=== PATIENT | female | born 1965 | race Caucasian/White ===

== ENCOUNTER → 2016-10-03 | Outpatient (CLI) | payer OTHER | LOC: FIMAGING 13:59 | PROVIDERS: ATTEND Registered Nurse General Practice | DX: Z12.31 Encounter for screening mammogram for malignant neoplasm of breast (principal) | CPT/HCPCS: G0202 ==

== ENCOUNTER 2016-11-21 08:56 | Day surgery (SDC) | payer OTHER ==
--- NOTE | 2016-11-17 08:27 | PDGENHP ---
History and Physical - Chief Complaint Left leg pain - History of Present Illness 1. 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 She~lives in [place]. 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. ~She~is ; she~has 4~children. ~Debraenjoys running, cycling , swimming and pilates. Brett's left~hip pain started in ~with no~recalled trauma or injury, and with no~previous complaints.~Debradoes not have~a known history of hip dysplasia. Presentation today is of~left hip hamstring origin and some lateral sided~pain. ~The hip does~wake her~at night and does not~click and catch on her. Sitting can be a real struggle~for her. Debradoes~report suffering from lower back pain episodes. Debrahas~participated in physical therapy and has~tried other conservative measures including dry needling and massage therapy. She has had left hamstring USG guided steroid injection in August,~and she felt significantly better for few hours. ~She~has not~received sufficient symptomatic improvement. Debrahas~utilized medication for pain management, including NSAID. Debrahas used medication for 5 months. Debradenies issues with the right~hip. ~ Debraunderstands that she~has a hip and pelvis problem which should be researched and wishes to get a better understanding of her~hip status, followed by an establishment of a treatment strategy, hoping she~would be able to get back to her~well being active life. History: Past medical history: ~ High Cholestrol Relevant familial history: None which is relevant Past surgical history: No. Surgery Anesthesia Year Outcome 1 C section EA 1999 2 Abdominoplasty and breast augumentation [place] 2009 Good Debradenies problematic issues with general anesthesia in the past. I have reviewed, verified and agree with the past medical, surgical, family and social history. Current Medications:~has a current medication list which includes the following prescription(s): meloxicam, rosuvastatin, sertraline hcl, and tramadol. ALLERGIES:~has No Known Allergies. Objective: Physical Examination: Debrais 5~feet 5~inches tall and weighs~135~Lbs. Debrais AAO x3; she~is well -nourished, in NAD. Skin is warm and dry. ~Breathing is non-labored. ~CV with RRR by pulse. Abdomen is soft, NTND. Currently, she~walks with a abnormal antalgic~gait. Trendelenburg sign is negative~and proprioception~is reduced, both~sides. She~presents~with no~signs of joint laxity.~Beightons Score: 0 ~ Lower spine examination is negative~for sciatic or femoral nerve irritation with negative~SLR &~femoral stretch tests. Range of motion of the spine is normal~for flexion, extension, and rotations, with no~associated pain. Strength, Sensation and pulses are normal - bilaterally Ankles and knees exams are normal~and no~mal-alignment is evident. She~has~no leg length discrepancy. Thigh circumference is symmetric~with no evidence for muscle atrophy~on both~ sides. Hip ROM (degrees): FL ER At 90~hip FL IR At 90~hip FL AB AD EX IR Neutral hip ER Neutral hip R 115 40 5-10 35 5 10 25-30 30 L 115 40 15 35 5 5 25-30 30 Specific hip and pelvis tests: Quadrant JONA Roll Add. Longus R Negative Negative Negative Negative L Negative Negative Negative Negative Glut. Med ITB Pos. Imp R Negative 5/5 strength Negative 5/5 strength Negative L Negative 5/5 strength Negative 5/5 strength Negative Squeeze test measured normal Bony Symphysis pubis is pain free~to touch while concentric activity of the rectus abdominis, does not~produce pain at its insertion. Ilio Psos specific tests are negative for pain during cycling for both hips~and remarkable for no snap. HF has no pain on both hips. No anterior~capsule tenderness on both sides. Greater trochanteric burse is pain free~on both hips. Piriformis tests: FAIR is negative, with no~local signs of neuritis related to sciatic nerve. SIJs examination is normal~with normal~JONA in relation and local tenderness. Hamstrings tests are positive~functional contraction and positive~tendinopathy the left hip. Imaging: Radiology studies which I~have personally reviewed, analyzed and measured are below: XR: AP of the hip and pelvis: Performed in a good~technique Coccyx to pubic symphysis distance 1.3~cm. 3~degrees caudal. [place]~Lines are preserved. No~Pathological signs are seen in the Symphysis Pubis. No~Pathological signs are seen at the Ischial~tuberosity. ~ Specific measurements show: Sclerosis Sup. Lat. OA Cysts Joint Space-WBZ Joint Space-Medial R + Negative Negative 4.2~mm 2.8~mm L + Negative Negative 4.1~mm 2.7~mm X Table lateral: Anterior cam lesion is not seen~on both hips. MRI shows: Partial tear of left proximal hamstring tendons off the footprint (60 -70%) with 2 cm retraction. Impression and plan:~ Debrais a 51 y.o.~active female~suffering from symptomatic left hamstring~ pain due to chronic proximal hamstrings partial tear with 2 cm retractioncausing significant disability to her~and altering~her~sport and life activities. Physical examination, imaging, and her~story correspond with the diagnosis mentioned above. I have explained the diagnosis and its significance to Debraand we have discussed the various possible treatment options and their implications with her. These include proceeding with conservative treatment while continuing to modify her~activities to avoid aggravating the hamstrings further and resuming pain medications or PRP injections (when needed) which can give temporary relief or surgical repair. We discussed in length the various aspects of the surgical procedure including possible complications, and with regards to the fact the sciatic nerve may be scarred up to the tendons and will require delicate neurolysis. Debrawill review the info presented. Debrais going to think about her~options and get back to us. Debrais happy with this plan. I have also supplied her~with our contact and web site details. I wish~Debraall the best, ~~ Arabella Riojas MD History Information - Allergies/Home Medication List Allergies/Adverse Reactions: No Known Allergies Allergy (Unverified 11/08/09 05:32) Home Medications: Zoloft 11/08/09 [Last Taken 04/13/07] Apri 28 Day Tablet 11/03/16 [Last Taken Unknown] Crestor 11/03/16 [Last Taken Unknown] Herbals/Supplements -Info Only 11/03/16 [Last Taken Unknown] Ibuprofen 11/03/16 [Last Taken Unknown] Imitrex 11/03/16 [Last Taken Unknown] Meloxicam 11/03/16 [Last Taken Unknown] Tramadol HCl 11/03/16 [Last Taken Unknown] Valacyclovir HCl 11/03/16 [Last Taken Unknown] Zolpidem Tartrate 11/03/16 [Last Taken Unknown] I have personally reviewed and updated: medical history - Social History Smoking Status: Never smoked Review of Systems Review of Systems: Physical Exam Physical Exam:
[2016-11-21] MEDS ORDERED: LIDOCAINE 1% 2 ML INJ ID PRN (09:36)
[2016-11-21] MEDS ORDERED: LR 1,000 ML IV ONE (09:36)
[2016-11-21] MEDS ORDERED: PREGABALIN 150 MG CAP PO ONE (09:44)
[2016-11-21] MEDS ORDERED: ceFAZolin 2 GM/DEXTROSE 100 ML IV ONE (09:44)
[2016-11-21] MEDS ORDERED: ACETAMINOPHEN 500 MG TAB PO ONE (09:44)
[2016-11-21] MEDS ORDERED: BUPIVACAINE 0.25% 30 ML SDV ONE (10:26)
[2016-11-21] MEDS ORDERED: fentaNYL 100 MCG/2 ML INJ ONE ×2 (12:02→16:37)
[2016-11-21] MEDS ORDERED: PROPOFOL 200 MG/20 ML VIAL ONE (12:03)
[2016-11-21] MEDS ORDERED: ONDANSETRON 4 MG/2 ML VIAL ONE (12:08)
[2016-11-21] MEDS ORDERED: DEXAMETHASONE 4 MG/ML VIAL ONE ×2 (12:08→13:46)
[2016-11-21] MEDS ORDERED: MIDAZOLAM 2 MG/2 ML VIAL IVP ONE (12:21)
--- NOTE | 2016-11-21 12:21 | PDANEPAE ---
ANE History of Present Illness left hamstring tendon tear ANE Past Medical History - Cardiovascular History Hx Hypertension: No Hx Arrhythmias: No Hx Chest Pain: No Hx Coronary Artery / Peripheral Vascular Disease: No Hx CHF / Valvular Disease: No Hx Palpitations: No - Pulmonary History Hx COPD: No Hx Asthma/Reactive Airway Disease: Yes Hx Recent Upper Respiratory Infection: No Hx Oxygen in Use at Home: No Hx Sleep Apnea: No Sleep Apnea Screening Result - Last Documented: Negative Pulmonary History Comment: W /URIs - Neurologic History Hx Cerebrovascular Accident: No Hx Seizures: No Hx Dementia: No Neurologic History Comment: MIGRAINES - Endocrine History Hx Diabetes: No Obesity: no - Renal History Hx Renal Disorders: No - Liver History Hx Hepatic Disorders: No - Neurological & Psychiatric Hx Hx Neurological and Psychiatric Disorders: Yes Neurological / Psychiatric History Comment: ZOLOFT FOR DEPRESSION - Cancer History Hx Cancer: No - Congenital Disorder History Hx Congenital Disorders: No - GI History Hx Gastrointestinal Disorders: No - Other Health History Other Health History: HYPONATREMIA IN PAST. IRON DEF IN PAST. OSTEOARTHRITIS - Chronic Pain History Chronic Pain: Yes (OSTEOARTHRITIS NECK & LUMBAR STENOSIS) - Surgical History Prior Surgeries: C SECTION. ABDOMINOPLASTY & BREAST AUGMETATION ANE Review of Systems Review of Systems: - Exercise capacity METS (RN): 5 METS ANE Patient History - Allergies Allergies/Adverse Reactions: No Known Allergies Allergy (Unverified 11/08/09 05:32) - Home Medications Home medications: home medication list seen and reviewed Home Medications: Zoloft 11/08/09 [Last Taken 04/13/07] Apri 28 Day Tablet 11/03/16 [Last Taken Unknown] Crestor 11/03/16 [Last Taken Unknown] Herbals/Supplements -Info Only 11/03/16 [Last Taken Unknown] Ibuprofen 11/03/16 [Last Taken Unknown] Imitrex 11/03/16 [Last Taken Unknown] Meloxicam 11/03/16 [Last Taken Unknown] Tramadol HCl 11/03/16 [Last Taken Unknown] Valacyclovir HCl 11/03/16 [Last Taken Unknown] Zolpidem Tartrate 11/03/16 [Last Taken Unknown] - NPO status NPO Since - Liquids (Date): 11/20/16 NPO Since - Liquids (Time): 21:00 NPO Since - Solids (Date): 11/20/16 NPO Since - Solids (Time): 18:00 - Anes Hx Anes Hx: no prior problems - Smoking Hx Smoking Status: Never smoked - Family Anes Hx Family Hx Anesthesia Complications: NEG ANE Labs/Vital Signs - Vital Signs Blood Pressure: 121/89 Heart Rate: 68 Respiratory Rate: 16 O2 Sat (%): 96 Height: 165.1 cm Weight: 61.235 kg ANE Physical Exam - Airway Neck exam: FROM Mallampati Score: Class 1 Mouth exam: normal dental/mouth exam - Pulmonary Pulmonary: no respiratory distress - Cardiovascular Cardiovascular: regular rate and rhythym - ASA Status ASA Status: II ANE Anesthesia Plan Anesthesia Plan: general endotracheal anesthesia
[2016-11-21] MEDS ORDERED: HYDROmorphONE/DILAUDID 2 MG/ML INJ ONE (13:45)
[2016-11-21] MEDS ORDERED: LIDOCAINE 2% 100 MG/5 ML SYR ONE (13:46)
[2016-11-21] MEDS ORDERED: ROCURONIUM 50 MG/5 ML VIAL ONE (13:46)
[2016-11-21] MEDS ORDERED: OXYCODONE/APAP 5/325 TAB PO PRN (15:51)
[2016-11-21] MEDS ORDERED: PROMETHAZINE HCL 25 MG/ML INJ IVP PRN (15:51)
[2016-11-21] MEDS ORDERED: ONDANSETRON 4 MG/2 ML VIAL IVP PRN (15:51)
[2016-11-21] MEDS ORDERED: METOCLOPRAMIDE 10 MG/2 ML VIAL IVP PRN (15:51)
[2016-11-21] MEDS ORDERED: ALBUTEROL 3 ML DEYVIAL IH PRN (15:51)
[2016-11-21] MEDS ORDERED: NALOXONE HCL 0.4 MG/ML INJ IVP PRN (15:51)
[2016-11-21] MEDS ORDERED: ACETAMINOPHEN 500 MG TAB PO PRN (15:51)
--- NOTE | 2016-11-21 16:30 | POSTANESTH ---
Post Anesthetic Evaluation Cardiovascular Status: Normal, Stable Respiratory Status: Normal, Stable Level of Consciousness/Mental Status: Can Participate in Eval Pain Control: Adequate, Prn Tx Ordered Nausea/Vomiting Control: Adequate, Prn Tx Ordered Complications Possibly Related to Anesthesia: None Noted
[2016-11-21] MEDS: fentaNYL 100 MCG/2 ML INJ IVP PRN ×2 (16:39→16:49)
[2016-11-21] MEDS ORDERED: OXYCODONE/APAP 5/325 TAB ONE (16:58)
[2016-11-21] MEDS ORDERED: HYDROmorphONE/DILAUDID 1 MG/ML INJ ONE (17:20)
[2016-11-21] MEDS: HYDROmorphONE/DILAUDID 1 MG/ML INJ IVP PRN ×2 (17:21→17:33)
[2016-11-21 18:09] VITALS: PULSE 79; RESP 13
[2016-11-21 18:40] VITALS: TEMP 98.6
[2016-11-21 19:33] VITALS: BP 118/79; O2SAT 94
== END 2016-11-21 19:28 | disposition home or self-care (01) ==
LOC: FSGY 08:56
PROVIDERS: ATTEND Orthopaedic Surgery Sports Medicine
PROC: 0LQM0ZZ Repair Left Upper Leg Tendon, Open Approach (ICD-10-PCS; principal; 2016-11-21 10:15)
DX: M24.852 Other specific joint derangements of left hip, not elsewhere classified (principal); J45.909 Unspecified asthma, uncomplicated; G43.909 Migraine, unspecified, not intractable, without status migrainosus; M67.854 Other specified disorders of tendon, left hip
CPT/HCPCS: C1713; J0171; J0690; J1100; J1170; J2001; J2250; J2405; J2704; J3010